=== PATIENT | female | born 1990 | race Caucasian/White ===

== ENCOUNTER → 2019-12-01 | Outpatient (CLI) | payer BC | END | disposition home or self-care (01) | LOC: LABWHC1 07:51 | PROVIDERS: ATTEND Obstetrics & Gynecology | DX: N97.8 Female infertility of other origin (principal) | CPT/HCPCS: 36415; 84144 ==

== ENCOUNTER → 2019-12-14 | Outpatient (CLI) | payer BC | END | disposition home or self-care (01) | LOC: LABWHC1 11:01 | PROVIDERS: ATTEND Obstetrics & Gynecology | DX: N97.8 Female infertility of other origin (principal) | CPT/HCPCS: 36415; 84144; 84702 ==

== ENCOUNTER → 2020-09-27 | Outpatient (CLI) | payer BC | END | disposition home or self-care (01) | LOC: LABWHC1 07:58 | PROVIDERS: ATTEND Obstetrics & Gynecology | DX: Z32.00 Encounter for pregnancy test, result unknown (principal) | CPT/HCPCS: 36415; 84144 ==

== ENCOUNTER → 2021-03-24 | Outpatient (CLI) | payer BC | END | disposition home or self-care (01) | LOC: LABWHC1 07:07 | PROVIDERS: ATTEND Obstetrics & Gynecology | DX: N97.8 Female infertility of other origin (principal) | CPT/HCPCS: 36415; 84144 ==

== ENCOUNTER 2022-02-08 10:11 | Inpatient (IN) | payer BC ==
[2022-02-08] MEDS ORDERED: METHYLERGONOVINE 0.2 MG/ML 1 ML AMP IM PRN (11:52)
[2022-02-08] MEDS ORDERED: CARBOPROST TROMETHAMINE 250 MCG/ML 1 ML AMP IM PRN (11:52)
[2022-02-08] MEDS ORDERED: OXYTOCIN 10 UNIT/ML 1 ML VIAL IM PRN (11:52)
[2022-02-08] MEDS ORDERED: TERBUTALINE 1 MG/ML VIAL SQ PRN (11:52)
[2022-02-08] MEDS ORDERED: LIDOCAINE 1% (PF) 10 MG/ML (30 ML SDV) SQ PRN (11:52)
[2022-02-08] MEDS ORDERED: OXYTOCIN 30 UNITS/500 ML NS 30 UNIT in SALINE 1 500ML.BAG IV SCH ×2 (12:00→22:15)
[2022-02-08] MEDS: LACTATED RINGERS 1,000 ML IV SCH ×2 (12:40→16:47)
[2022-02-08 13:09] LABS: Basophils % (A) 0 %; Eosinophils % (A) 0 %; HCT 36.9 % (34.0-46.0); HGB 12.7 gm/dL (11.4-16.0); Lymphocytes # (A) 1.7 k/uL (1.0-4.8); Lymphocytes % (A) 19 %; MCH 32.1 pg (25.0-35.0); MCHC 34.5 g/dL (31.0-37.0); Mean Platelet Volume 9.6; Monocytes # (A) 0.5 k/uL (0-1.0); Monocytes % (A) 5 %; Neutrophils # (A) 6.6 k/uL (1.3-7.7); Neutrophils % (A) 73 %; Platelet Count 160 k/uL (150-450); RBC 3.97 m/uL (3.80-5.40); RDW 13.2 % (11.5-15.5); WBC 9.1 k/uL (3.8-10.6)
[2022-02-08] MEDS ORDERED: BUTORPHANOL 1 MG/ML 1 ML VIAL IV PRN (14:49)
[2022-02-08] MEDS ORDERED: BENZOCAINE/MENTHOL SPRAY 1 GM/SPRAY AEROSOL TOPICAL PRN (22:05)
[2022-02-08] MEDS ORDERED: HYDROCORTISONE 2.5% RECTAL CREAM 30 GM TUBE RECTAL PRN (22:05)
[2022-02-08] MEDS ORDERED: LANOLIN CREAM 5 GM TUBE TOPICAL PRN (22:05)
[2022-02-08] MEDS ORDERED: ACETAMINOPHEN TAB 325 MG TAB PO PRN (22:05)
[2022-02-08] MEDS ORDERED: ZOLPIDEM 5 MG TAB PO PRN (22:05)
[2022-02-08] MEDS ORDERED: diphenhydrAMINE 50 MG/ML 1 ML VIAL IVP PRN ×2 (22:05)
[2022-02-08] MEDS ORDERED: SIMETHICONE 80 MG CHEWABLE PO PRN (22:05)
[2022-02-08] MEDS ORDERED: diphenhydrAMINE 25 MG CAP PO PRN (22:05)
[2022-02-08] MEDS ORDERED: diphenhydrAMINE 50 MG CAP PO PRN (22:05)
--- NOTE | 2022-02-08 22:11 | P.HPOB ---
History of Present Illness H&P Date: 02/08/22 Chief Complaint: IUP at 40 and 0, labor This is a 31-year-old 1 para 0 at 40-0/7 weeks that presented to labor and delivery with complaints of regular painful contractions. Patient did note she will leakage of fluid. In nature was negative in triage. Patient was noted to make cervical change in triage therefore is admitted to labor and delivery. Patient had been receiving routine care which has been essentially uncomplicated. Patient is a blood type of A+, rubella status immune, hepatitis B surface antigen negative, HIV nonreactive, RPR nonreactive, beta strep cultures negative. 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 Past Anesthesia/Blood Transfusion Reactions: Postoperative Nausea & Vomiting (PONV) Past Psychological History: No Psychological Hx Reported Smoking Status: Never smoker Past Alcohol Use History: None Reported Past Drug Use History: None Reported - Past Family History Mother Family Medical History: Hyperlipidemia, Thyroid Disorder Medications and Allergies Home Medications Medication Instructions Recorded Confirmed Type Aspirin 81 mg PO DAILY 02/08/22 02/08/22 History Levothyroxine Sodium 25 mcg PO DAILY 02/08/22 02/08/22 History Multivitamin [Multivitamins Adult 1 tab PO DAILY 02/08/22 02/08/22 History Gummies] Allergies Allergy/AdvReac Type Severity Reaction Status Date / Time adhesive Allergy Mild Rash/Hives Verified 02/08/22 10:44 Sulfa (Sulfonamide Allergy Rash/Hives Verified 02/08/22 10:44 Antibiotics) Exam Osteopathic Statement: *. No significant issues noted on an osteopathic structural exam other than those noted in the History and Physical/Consult. Vital Signs Temp Pulse Resp BP Pulse Ox 02/08/22 13:00 97.2 F L 71 18 120/75 99 02/08/22 10:43 97.2 F L 80 18 134/84 99 Intake and Output 02/08/22 02/08/22 02/08/22 06:59 14:59 22:59 Other: # Voids 2 Weight 76.204 kg Targeted physical exam is performed in this date and electric blanket wirer a well-nourished well-developed female in no acute distress, breathing is noted to be nonlabored, heart has regular rhythm, abdomen is gravid and appropriate for gestational age, heart tones returned be category 1 and she is vick every 3-5 minutes. On cervical exam she is 3/80/-2 station, amniotomy is per formed and clear fluid was obtained. Results Result Diagrams: 02/08/22 13:05 Assessment and Plan (1) Term Current Visit: Yes Status: Acute Code(s): Z34.90 - ENCNTR FOR SUPRVSN OF NORMAL , UNSP, UNSP TRIMESTER SNOMED Code(s): 50101363 (2) Active labor Current Visit: Yes Status: Acute Code(s): RNJ4268 - SNOMED Code(s): 022073073 Plan: 31-year-old 1 para 0 at 40-0/7 weeks that presents to labor and delivery in active labor. Patient is admitted to labor and delivery. Patient underwent amniotomy and clear fluid was obtained. Patient is vick regularly. Options for analgesia are discussed including Stadol and epidural. Patient will consider. Anticipate spontaneous vaginal delivery later today.
--- NOTE | 2022-02-08 22:12 | P.PROBDLV ---
Vaginal Delivery Note - . Vaginal Delivery Note: This is a 31-year-old 1 para 0 at 40-0/7 weeks that was admitted to labor and delivery earlier this afternoon in active labor. Patient underwent amniotomy and clear fluid was obtained. Patient progressed through labor eventually becoming uncomfortable and requesting epidural placement. Epidural was placed without difficulty by the anesthesia department. Patient made progress slowly becoming complete. Once complete patient had urge to push. Patient began pushing and had a normal spontaneous vaginal delivery of a viable female at 2143, weight of 7 lbs. 14 oz., Apgars of 8 and 9 at one and 5 minutes respectively. After two-minute delayed the umbilical cord was doubly clamped and cut. A spontaneous cry was noted at . The placenta was delivered spontaneously intact with three-vessel cord being noted. On inspection the patient's vaginal vault a second-degree midline laceration was appreciated along with a right labial. Lacerations were injected with lidocaine and repaired in the usual fashion with 3-0 Rapide. Lacerations were noted to be hemostatic after repair. All counts were noted be correct 2 at the end of delivery. Patient and tolerated delivery well and are resting comfortably
[2022-02-08] MEDS: IBUPROFEN 600 MG TAB PO SCH (23:06)
[2022-02-09] MEDS: LACTATED RINGERS 1,000 ML IV SCH (03:00)
[2022-02-09] MEDS: IBUPROFEN 600 MG TAB PO SCH ×4 (06:55→23:23)
[2022-02-09] MEDS ORDERED: ROPIVACAINE 100 MG, fentaNYL (PF). 200 MCG in SODIUM CHLORIDE 0.9% 76 ML EPIDURAL ONE (08:12)
--- NOTE | 2022-02-09 08:40 | P.PNOBGVD ---
Subjective - Subjective Principal diagnosis: day 1, status post normal spontaneous vaginal delivery Interval history: Patient did well overnight. She is ambulating and voiding without difficulty. She is tolerating a regular diet without nausea or vomiting. She states her pain is controlled. She is breast-feeding without difficulty. Her lochia is moderate. Patient reports: Reports appetite normal, Reports voiding normally, Reports pain well controlled, Reports ambulating normally : doing well, nursing well Objective - Latest Vital Signs Latest vital signs: Vital Signs Temp Pulse Resp BP Pulse Ox 02/09/22 04:00 98.4 F 70 16 112/76 96 02/08/22 23:55 98.6 F 59 L 16 107/60 02/08/22 23:25 98.6 F 80 16 127/70 02/08/22 22:55 98.6 F 83 17 118/56 02/08/22 22:40 98.6 F 85 16 130/63 02/08/22 22:25 98.6 F 87 16 133/61 02/08/22 22:10 120/58 02/08/22 21:55 99.0 F 96 15 134/72 02/08/22 13:00 97.2 F L 71 18 120/75 99 02/08/22 10:43 97.2 F L 80 18 134/84 99 Intake and Output 02/08/22 02/09/22 02/09/22 22:59 06:59 14:59 Intake Total 480 Output Total 90 Balance 390 Intake: Oral 480 Output: Output, Quantitative 90 Blood Loss Other: Voiding Method Toilet # Voids 1 1 # Bowel Movements 0 - Exam Extremities: Present: normal, edema Abdomen: Present: normal appearance, soft Uterus: Present: normal, firm Assessment and Plan (1) Term Current Visit: Yes Status: Acute Code(s): Z34.90 - ENCNTR FOR SUPRVSN OF NORMAL , UNSP, UNSP TRIMESTER SNOMED Code(s): 70105850 (2) Active labor Current Visit: Yes Status: Acute Code(s): EBE7125 - SNOMED Code(s): 048542611 (3) Status post vaginal delivery Current Visit: Yes Status: Acute Code(s): QQX3973 - SNOMED Code(s): 049239619 (4) Obstetric vaginal laceration with first degree perineal laceration Current Visit: Yes Status: Acute Code(s): O70.0 - FIRST DEGREE PERINEAL LACERATION DURING DELIVERY SNOMED Code(s): 546268441 Plan: 31-year-old G1 now P1 status post normal spontaneous vaginal delivery. Patient is doing well, anticipate discharge home tomorrow morning.
[2022-02-09] MEDS: SENNOSIDES-DOCUSATE SODIUM 1 EACH TAB PO SCH ×2 (09:31→20:06)
[2022-02-10] MEDS: IBUPROFEN 600 MG TAB PO SCH ×2 (01:01→08:00)
[2022-02-10] MEDS: SENNOSIDES-DOCUSATE SODIUM 1 EACH TAB PO SCH (08:00)
[2022-02-10 09:27] VITALS: BP 137/80; PULSE 63; RESP 18; TEMP 97.7
--- NOTE | 2022-02-10 10:44 | P.DS ---
Providers Date of admission: 02/08/22 11:37 Expected date of discharge: 02/10/22 Attending physician: Radha Walton Primary care physician: Stated None - Discharge Diagnosis(es) (1) Active labor Current Visit: Yes Status: Acute (2) Obstetric vaginal laceration with first degree perineal laceration Current Visit: Yes Status: Acute (3) Status post vaginal delivery Current Visit: Yes Status: Acute (4) Term Current Visit: Yes Status: Acute Hospital Course: This is a 31-year-old 1 now para 1 woman who is admitted at 40-0/7 weeks gestation in spontaneous active labor. She had an unremarkable labor and received an epidural anesthetic. She went on to deliver on by normal spontaneous vaginal delivery a liveborn female infant weighing 7 lbs. 14 oz. with Apgars of 8 at 1 minute and 9 at 5 minutes. She had a second-degree on perineal laceration and a right labial laceration that were repaired without incident. Her course was unremarkable. By day #1 she was ambulating and voiding without difficulty. Her lochia was moderate. Her vital signs were stable. By day #2 she continued to do very well. Her pain was well-controlled. Her lochia was decreasing and she was breast feeding successfully. She was therefore discharged home with routine instructions for care and follow-up. Procedures: Normal spontaneous vaginal delivery Repair of perineal and labial lacerations Patient Condition at Discharge: Good Plan - Discharge Summary New Discharge Prescriptions: New Acetaminophen Tab [Tylenol] 650 mg PO Q4HR PRN tab PRN Reason: Mild Pain Or Fever >= 100.5 Ibuprofen [Motrin] 600 mg PO Q6H tab Discontinued Aspirin 81 mg PO DAILY No Action Levothyroxine Sodium 25 mcg PO DAILY Multivitamin [Multivitamins Adult Gummies] 1 tab PO DAILY Discharge Medication List Levothyroxine Sodium 25 mcg PO DAILY 02/08/22 [History] Multivitamin [Multivitamins Adult Gummies] 1 tab PO DAILY 02/08/22 [History] Acetaminophen Tab [Tylenol] 650 mg PO Q4HR PRN tab 02/10/22 [Rx] Ibuprofen [Motrin] 600 mg PO Q6H tab 02/10/22 [Rx] Follow up Appointment(s)/Referral(s): Tremp,Radha S, DO [Doctor of Osteopathic Medicine] - 6 Weeks Activity/Diet/Wound Care/Special Instructions: Follow-up in the office in 6 weeks . Call with any concerning signs or symptoms including heavy vaginal bleeding, severe abdominal pain, fever greater than 101, swelling or redness of the lower extremities, foul vaginal discharge, or signs of depression. Nothing in the vagina for 6 weeks after delivery, specifically no intercourse. Discharge Disposition: HOME SELF-CARE
== END 2022-02-10 11:00 | disposition home or self-care (01) | DRG 807 ==
LOC: FBPOP 10:11 → 4FBP 11:37
PROVIDERS: ADMIT Obstetrics & Gynecology Obstetrics; ATTEND Obstetrics & Gynecology Obstetrics
PROC: 10E0XZZ Delivery of Products of Conception, External Approach (ICD-10-PCS; principal; 2022-02-08)
PROC: 0KQM0ZZ Repair Perineum Muscle, Open Approach (ICD-10-PCS; 2022-02-08)
DX: O70.1 Second degree perineal laceration during delivery (principal); Z37.0 Single live birth; Z3A.40 40 weeks gestation of pregnancy; Z79.82 Long term (current) use of aspirin; Z79.890 Hormone replacement therapy
CPT/HCPCS: 59025; 84112; 85025; 86850; 86900; 86901; 99213

== ENCOUNTER 2023-09-25 06:00 | Inpatient (IN) | payer BC ==
[2023-09-26] MEDS ORDERED: OXYTOCIN 10 UNIT/ML 1 ML VIAL IM PRN (06:34)
[2023-09-26] MEDS ORDERED: TRANEXAMIC 1,000 MG/100ML-NACL 1,000 MG in EMPTY BAG 1 BAG IV PRN (06:34)
[2023-09-26] MEDS ORDERED: METHYLERGONOVINE 0.2 MG/ML 1 ML AMP IM PRN (06:34)
[2023-09-26] MEDS ORDERED: LIDOCAINE 0.5% (PF) 5 MG/ML (50 ML SDV) SQ PRN (06:34)
[2023-09-26] MEDS ORDERED: TERBUTALINE 1 MG/ML VIAL SQ PRN (06:34)
[2023-09-26] MEDS ORDERED: miSOPROStoL 200 MCG TAB PO PRN (06:34)
[2023-09-26] MEDS ORDERED: CARBOPROST TROMETHAMINE 250 MCG/ML 1 ML AMP IM PRN (06:34)
[2023-09-26] MEDS ORDERED: OXYTOCIN 30 UNITS/500 ML NS 30 UNIT in SALINE 1 500ML.BAG IV SCH (06:45)
[2023-09-26] MEDS: LACTATED RINGERS 1,000 ML IV SCH ×2 (07:05→11:54)
[2023-09-26 07:25] LABS: Basophils % (A) 1 %; Eosinophils % (A) 0 %; HCT 37.3 % (34.0-46.0); HGB 12.9 gm/dL (11.4-16.0); Lymphocytes # (A) 1.4 k/uL (1.0-4.8); Lymphocytes % (A) 24 %; MCH 31.5 pg (25.0-35.0); MCHC 34.6 g/dL (31.0-37.0); Mean Platelet Volume 9.9; Monocytes # (A) 0.3 k/uL (0-1.0); Monocytes % (A) 5 %; Neutrophils % (A) 68 %; Platelet Count 144 k/uL (150-450); RDW 12.7 % (11.5-15.5); WBC 5.9 k/uL (3.8-10.6)
--- NOTE | 2023-09-26 08:39 | P.HPOB ---
History of Present Illness H&P Date: 09/26/23 Chief Complaint: IUP at 39-6/7 weeks This is a 33-year-old at 39-6/7 weeks that presents to labor and delivery for induction of labor. Patient has been receiving routine care which was complicated by COVID-19 infection. Patient notes good movement denies vaginal bleeding or loss of fluid. On bloodwork patient's blood type of A+, rubella status immune, hepatitis B surface antigen negative, HIV negative, RPR is nonreactive, group beta strep cultures negative. Review of Systems Constitutional: Denies chills, Denies fatigue, Denies fever Ears, nose, mouth and throat: Denies headache Cardiovascular: Reports leg edema Respiratory: Denies dyspnea Gastrointestinal: Denies constipation, Denies diarrhea, Denies nausea, Denies vomiting Genitourinary: Reports Past Medical History Past Medical History: Asthma, Thyroid Disorder Additional Past Medical History / Comment(s): ulcers History of Any Multi-Drug Resistant Organisms: None Reported Past Surgical History: Bladder Surgery, Orthopedic Surgery, Tonsillectomy Additional Past Surgical History / Comment(s): 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 Past Anesthesia/Blood Transfusion Reactions: Postoperative Nausea & Vomiting (PONV) Past Psychological History: No Psychological Hx Reported Smoking Status: Never smoker Past Alcohol Use History: None Reported Past Drug Use History: None Reported - Past Family History Mother Family Medical History: Hyperlipidemia, Thyroid Disorder Medications and Allergies Home Medications Medication Instructions Recorded Confirmed Type Levothyroxine Sodium 25 mcg PO DAILY 02/08/22 09/26/23 History Multivitamin [Multivitamins Adult 1 tab PO DAILY 02/08/22 09/26/23 History Gummies] Aspirin 81 mg PO DAILY 09/26/23 09/26/23 History Allergies Allergy/AdvReac Type Severity Reaction Status Date / Time adhesive Allergy Mild Rash/Hives Verified 09/26/23 06:32 Sulfa (Sulfonamide Allergy Rash/Hives Verified 09/26/23 06:32 Antibiotics) Exam Osteopathic Statement: *. No significant issues noted on an osteopathic structural exam other than those noted in the History and Physical/Consult. Vital Signs Temp Pulse Resp BP Pulse Ox 09/26/23 06:31 96.9 F L 106 H 16 112/82 100 Intake and Output 09/25/23 09/26/23 09/26/23 22:59 06:59 14:59 Other: Weight 78.925 kg Targeted physical exam is performed and state in general this a well-nourished well-developed female in no acute distress, breathing is noted to be nonlabored, heart has a regular rate and rhythm, abdomen is gravid and appropriate for gestational age, on cervical exam she is 2/50/-2 station amniotomy is performed and clear fluid was obtained. heart tones returned be category 1 and she is vick irregularly. Results Result Diagrams: 09/26/23 06:52 Abnormal Lab Results - Last 24 Hours (Table) 09/26/23 Range/Units 06:52 Plt Count 144 L (150-450) k/uL Assessment and Plan (1) History of COVID-19 Current Visit: Yes Status: Acute Code(s): Z86.16 - PERSONAL HISTORY OF COVID-19 SNOMED Code(s): 643031872153244594 (2) Term Current Visit: No Status: Acute Code(s): Z34.90 - ENCNTR FOR SUPRVSN OF NORMAL , UNSP, UNSP TRIMESTER SNOMED Code(s): 66669819 Plan: 33-year-old at 39 and 6 presents for induction of labor. Pitocin induction of labor [facility] protocol. Amniotomy was performed clear fluid was obtained. Patient is counseled on options for analgesia including Stadol, nitrous, epidural. Patient states she will consider. Anticipate spontaneous vaginal delivery.
[2023-09-26] MEDS ORDERED: ZOLPIDEM 5 MG TAB PO PRN (14:24)
[2023-09-26] MEDS ORDERED: diphenhydrAMINE 25 MG CAP PO PRN (14:24)
[2023-09-26] MEDS ORDERED: HYDROCORTISONE 2.5% RECTAL CREAM 30 GM TUBE RECTAL PRN (14:24)
[2023-09-26] MEDS ORDERED: BENZOCAINE/MENTHOL SPRAY 1 GM/SPRAY AEROSOL TOPICAL PRN (14:24)
[2023-09-26] MEDS ORDERED: diphenhydrAMINE 50 MG CAP PO PRN (14:24)
[2023-09-26] MEDS ORDERED: diphenhydrAMINE 50 MG/ML 1 ML VIAL IVP PRN ×2 (14:24)
[2023-09-26] MEDS ORDERED: SIMETHICONE 80 MG CHEWABLE PO PRN (14:24)
[2023-09-26] MEDS ORDERED: LANOLIN CREAM 5 GM TUBE TOPICAL PRN (14:24)
--- NOTE | 2023-09-26 14:28 | P.PROBDLV ---
Vaginal Delivery Note - . Vaginal Delivery Note: Findings: Viable male infant delivered at 1412, weight of 7 lbs. 1 oz., Apgars of 9 and 9 at one and 5 minutes respectively. This is a 33-year-old at 39-6/7 weeks that presented to labor and delivery for induction of labor. Patient had been receiving routine care which is compensated by COVID-19 infection She was admitted to labor and delivery and Pitocin induction of labor was begun. Amniotomy was performed and clear fluid was obtained. Patient progressed through labor eventually becoming uncomfortable and requesting epidural placement. Epidural was placed without difficulty by the anesthesia department. Patient progressed quickly to complete began pushing. With excellent maternal effort patient had a normal spontaneous vaginal delivery of a viable male infant at 1412, weight of 7 lbs. 1 oz., Apgars of 9 and 9 at one and 5 minutes respectively. did have a compound left hand. After a two-minute delayed the umbilical cord was doubly clamped and cut and the placenta was delivered spontaneously intact with a three-vessel cord being noted. Uterus is noted be firm and below the umbilicus. A red rubber catheter was used to drain the bladder of 100 mL of clear yellow urine. On inspection the patient's vaginal vault, no lacerations were appreciated. Estimated blood loss 100 mL All counts were noted to be correct 2 after the delivery.. Patient and infant tolerated delivery well and are resting comfortably
[2023-09-26] MEDS: IBUPROFEN 600 MG TAB PO SCH (15:06)
[2023-09-26] MEDS: ACETAMINOPHEN TAB 325 MG TAB PO PRN (20:24)
[2023-09-26] MEDS: SENNOSIDES-DOCUSATE SODIUM 1 EACH TAB PO SCH (20:24)
[2023-09-27] MEDS: IBUPROFEN 600 MG TAB PO SCH ×5 (02:05→19:59)
[2023-09-27] MEDS: ACETAMINOPHEN TAB 325 MG TAB PO PRN (08:02)
[2023-09-27] MEDS: SENNOSIDES-DOCUSATE SODIUM 1 EACH TAB PO SCH ×2 (09:07→21:28)
--- NOTE | 2023-09-27 15:01 | P.DS ---
Providers Date of admission: 09/26/23 06:00 Expected date of discharge: 09/27/23 Attending physician: Radha Walton Primary care physician: Stated None - Discharge Diagnosis(es) (1) History of COVID-19 Current Visit: Yes Status: Acute (2) Term Current Visit: No Status: Acute (3) Status post vaginal delivery Current Visit: No Status: Acute Hospital Course: 33-year-old G2 now P2 that presented to labor and delivery at 39-6/7 weeks for induction of labor. Patient had been removed seating routine care which has been complicated by a COVID-19 infection. Patient was admitted and Pitocin induction of labor was begun. Amniotomy was performed and clear fluid was obtained. Patient progressed through labor eventually becoming uncomfortable requesting epidural placement. Epidural was placed without difficulty by the anesthesia department. Patient progressed to complete began pushing and had a normal spontaneous vaginal delivery of a viable male delivered at 1412, weight of 7 lbs. 1 oz., Apgars of 9 and 9 at one and 5 minutes respectively. Patient's course has been uneventful. On this day #1 she is ambulating and voiding without difficulty. She is tolerating a regular diet without nausea or vomiting. Her lochia is moderate. She is breast-feeding without difficulty. She would like discharge home at 24 hours if possible. Patient Condition at Discharge: Good Plan - Discharge Summary New Discharge Prescriptions: No Action Levothyroxine Sodium 25 mcg PO DAILY Aspirin 81 mg PO DAILY Multivitamin [Multivitamins Adult Gummies] 1 tab PO DAILY Discharge Medication List Levothyroxine Sodium 25 mcg PO DAILY 02/08/22 [History] Multivitamin [Multivitamins Adult Gummies] 1 tab PO DAILY 02/08/22 [History] Aspirin 81 mg PO DAILY 09/26/23 [History] Follow up Appointment(s)/Referral(s): Radha Walton DO [Doctor of Osteopathic Medicine] - 6 Weeks Patient Instructions/Handouts: Vaginal Delivery (DC), Vaginal Delivery (GEN) Activity/Diet/Wound Care/Special Instructions: No tub baths or intercourse until 6 weeks . [id number] ibuprofen 6 her milligrams or 3 tablets every 6 hours as needed for pain. Patient is to call the office to make a routine appointment in 6 weeks. Should she make concerns prior to this appointment she is urged to call the office and be seen prior. Discharge Disposition: HOME SELF-CARE
[2023-09-28 00:24] VITALS: RESP 16
[2023-09-28] MEDS: IBUPROFEN 600 MG TAB PO SCH ×2 (04:57→08:38)
[2023-09-28] MEDS: SENNOSIDES-DOCUSATE SODIUM 1 EACH TAB PO SCH (08:38)
[2023-09-28 08:57] VITALS: BP 107/71; PULSE 72; TEMP 98
== END 2023-09-28 10:30 | disposition home or self-care (01) | DRG 807 ==
LOC: 4FBP 09-26 06:00
PROVIDERS: ADMIT Obstetrics & Gynecology Obstetrics; ATTEND Obstetrics & Gynecology Obstetrics
PROC: 10E0XZZ Delivery of Products of Conception, External Approach (ICD-10-PCS; principal; 2023-09-26)
PROC: 10907ZC Drainage of Amniotic Fluid, Therapeutic from Products of Conception, Via Natural or Artificial Opening (ICD-10-PCS; 2023-09-26)
PROC: 3E033VJ Introduction of Other Hormone into Peripheral Vein, Percutaneous Approach (ICD-10-PCS; 2023-09-26)
DX: O99.52 Diseases of the respiratory system complicating childbirth (principal); Z37.0 Single live birth; J45.909 Unspecified asthma, uncomplicated; Z3A.39 39 weeks gestation of pregnancy; Z79.82 Long term (current) use of aspirin; Z79.890 Hormone replacement therapy; Z86.16 Personal history of COVID-19; Z88.2 Allergy status to sulfonamides; Z91.048 Other nonmedicinal substance allergy status
CPT/HCPCS: 85025; 86850; 86900; 86901

== ENCOUNTER → 2024-07-13 | Outpatient (CLI) | payer BC ==
--- NOTE | 2024-07-13 14:36 | USB ---
Reason for Exam: Clinical finding. Technique: Method: Targeted. Findings: The upper outer quadrant of the right breast, the axilla of the right breast and the retroareolar of the right breast were scanned. No solid or cystic masses are identified.. An image clinically. Overall Assessment: Negative, BI-RAD 1 Management: Screening Mammogram of both breasts at age 41. A clinical breast exam by your physician is recommended on an annual basis and results should be correlated with mammographic findings. This exam should not preclude additional follow-up of suspicious palpable abnormalities. Results were given to the patient verbally at the time of exam. [facility], , 07/13/2024 2:05 PM. Electronically signed and approved by: Mal Chapman M.D. [facility]
== END | disposition home or self-care (01) ==
LOC: RADUSWWP 13:47
PROVIDERS: ATTEND Obstetrics & Gynecology
DX: N63.10 Unspecified lump in the right breast, unspecified quadrant (principal)